=== PATIENT | female | born 1985 | race Caucasian/White ===

== ENCOUNTER 2018-07-27 18:20 | Emergency (ER) | payer OTHER ==
[~2018-07-27] VITALS: Ht 167.6 cm; Wt 90.7 kg
[2018-07-27 18:35] VITALS: BP_SYST 140
[2018-07-27] MEDS ORDERED: IBUPROFEN 600 MG TABLET PO ONE (19:45)
[2018-07-27 20:05] VITALS: BP_SYST 132
== END 2018-07-27 20:05 | disposition home or self-care (01) ==
LOC: SED 18:20
DX: S93.401A Sprain of unspecified ligament of right ankle, initial encounter (principal); R03.0 Elevated blood-pressure reading, without diagnosis of hypertension; X50.9XXA Other and unspecified overexertion or strenuous movements or postures, initial encounter; Y93.01 Activity, walking, marching and hiking; Y92.59 Other trade areas as the place of occurrence of the external cause; Y99.8 Other external cause status
CPT/HCPCS: 99283